=== PATIENT | female | born 1990 | race Caucasian/White ===

== ENCOUNTER 2018-04-23 04:27 | Emergency (ER) | payer OTHER ==
[2018-04-23 05:56] LABS: URINE BLOOD (Dip) POC Negative (NEGATIVE); URINE GLUCOSE (Dip) POC Negative (NEGATIVE); URINE KETONES (Dip) POC Negative (NEGATIVE); URINE LEUKOCYTE EST (Dip) POC Negative (NEGATIVE); URINE NITRITE (Dip) POC Negative (NEGATIVE); URINE TOTAL PROTEIN POC Negative (NEGATIVE)
[2018-04-23 06:06] LABS: ADD MAN DIFF? NO
[2018-04-23 06:10] LABS: WHITE BLOOD COUNT 4.4 10^3/ul (4.8-10.8)
[2018-04-23 06:10] LABS: ABNORMAL IP MESSAGE 1; BASOPHILS % 0.7 % (0.0-2.0); EOSINOPHILS % 0.9 % (0.0-7.0); HEMATOCRIT 25.8 % (37.0-47.0); HEMOGLOBIN 7.1 g/dl (12.0-16.0); LYMPHOCYTES # 1.7 10^3/ul (0.8-2.9); LYMPHOCYTES % 37.9 % (15.0-51.0); MEAN CORPUSCULAR HEMOGLOBIN 17.5 pg (29.0-33.0); MEAN CORPUSCULAR HGB CONC 27.5 g/dl (32.0-37.0); MEAN CORPUSCULAR VOLUME 63.5 fl (82.0-101.0); MONOCYTE # 0.4 10^3/ul (0.3-0.9); MONOCYTES % 9.8 % (0.0-11.0); NEUTROPHIL # 2.2 10^3/ul (1.6-7.5); NEUTROPHILS % 50.5 % (39.0-77.0); PLATELET COUNT 304 10^3/UL (140-415); RED BLOOD COUNT 4.06 10^6/ul (4.20-5.40)
[2018-04-23 06:33] LABS: ANION GAP 15 (8-16); BLOOD UREA NITROGEN 17 mg/dl (7-20); CALCIUM 9.4 mg/dl (8.4-10.2); CARBON DIOXIDE 25 mmol/L (21-31); CHLORIDE 108 mmol/L (97-110); CREATININE 0.68 mg/dl (0.44-1.00); GLUCOSE 92 mg/dl (70-220); POTASSIUM 3.9 mmol/L (3.5-5.1); SODIUM 144 mmol/L (135-144)
[2018-04-23 06:42] LABS: POSITIVE DIFF @See below
[2018-04-23 09:55] LABS: IRON 24 ug/dl (35-150)
[2018-04-23 10:04] LABS: % IRON SATURATION 5 % SAT (22-52); TOTAL IRON BINDING CAPACITY 490 ug/dl (241-421)
== END 2018-04-23 08:30 | disposition home or self-care (01) ==
LOC: E/R 04:27
DX: D50.9 Iron deficiency anemia, unspecified (principal); R40.2252 Coma scale, best verbal response, oriented, at arrival to emergency department; R40.2142 Coma scale, eyes open, spontaneous, at arrival to emergency department; R40.2362 Coma scale, best motor response, obeys commands, at arrival to emergency department
CPT/HCPCS: 80048; 81003; 81025; 83540; 85025; 86850; 86900; 86901; 99283